=== PATIENT | female | born 1995 | race Caucasian/White ===

== ENCOUNTER 2018-06-03 14:16 | Emergency (ER) | payer MEDICAID, OTHER ==
[~2018-06-03] VITALS: Ht 160 cm; Wt 81.6 kg
[2018-06-03 14:28] VITALS: BP 136/88
--- NOTE | 2018-06-03 14:38 | NUR ---
PT CAME INTO ED W C/O COUGH, SORE THROAT, AND RIGHT EAR PAIN X 5 DAYS. PT REPORTS THROAT PAIN IS WORSE WHEN SWALLOWING. PT DENIES SOB AT THIS TIME. PER PT "I HAVE A PRESCRIPTON FOR SOME COUGH SYRUP BUT I HAVENT GOTTEN IT YET". PT REPORTS USE OF ALBUTEROL INHALER X THIS MORNING WITH NO RELIEF. PT PLACED ON MONITORS. PENDING MD VILLAFANA.
[2018-06-03 16:22] VITALS: BP 128/88
--- NOTE | 2018-06-03 16:23 | NUR ---
Patient discharged with v/s stable. Written and verbal after care instructions given and explained. Patient alert, oriented and verbalized understanding of instructions. Ambulatory with steady gait. All questions addressed prior to discharge. ID band removed. Patient advised to follow up with PMD. Rx of PROMETHAZINE, PREDNISONE given. Patient educated on indication of medication including possible reaction and side effects. Opportunity to ask questions provided and answered.
== END 2018-06-03 16:23 | disposition home or self-care (01) ==
LOC: MED 14:16
DX: J02.9 Acute pharyngitis, unspecified (principal); R03.0 Elevated blood-pressure reading, without diagnosis of hypertension
CPT/HCPCS: 87081; 99284

== ENCOUNTER 2021-10-19 23:53 | Emergency (ER) | payer MEDICAID, OTHER ==
[~2021-10-19] VITALS: Ht 160 cm; Wt 111.1 kg
[2021-10-20 00:08] VITALS: BP 142/88
[2021-10-20] MEDS ORDERED: ALBUTEROL SULFATE/IPRATROPIU 3 ML SOL IH ONE (00:30)
[2021-10-20] MEDS ORDERED: predniSONE 20 MG TAB PO ONE (00:30)
[2021-10-20] MEDS ORDERED: PRED20TA5 PO (00:53)
[2021-10-20] MEDS ORDERED: ALBU-71 NEB (00:53)
[2021-10-20] MEDS ORDERED: ALBU0.0912 IH (00:53)
[2021-10-20 00:57] VITALS: BP 145/82
--- NOTE | 2021-10-20 00:57 | NUR ---
Patient discharged with v/s stable. Written and verbal after care instructions given and explained. Patient alert, oriented and verbalized understanding of instructions. Ambulatory with steady gait. All questions addressed prior to discharge. ID band removed. Patient advised to follow up with PMD. Rx of ALBUTEROL, PROVENTIL, AND DELTASONE given. Patient educated on indication of medication including possible reaction and side effects. Opportunity to ask questions provided and answered.
== END 2021-10-20 00:57 | disposition home or self-care (01) ==
LOC: MED 23:53
DX: J45.901 Unspecified asthma with (acute) exacerbation (principal); Z79.899 Other long term (current) drug therapy
CPT/HCPCS: 94640; 99283; J7512